=== PATIENT | female | born 1990 | race Two or more races ===

== ENCOUNTER 2017-02-13 11:58 | Emergency (ER) | payer SELFPAY ==
[~2017-02-13] VITALS: Ht 162.6 cm; Wt 59.0 kg
[2017-02-13 13:49] LABS: POTASSIUM ISTAT 3.2 mmol/L (3.5-5.0)
--- NOTE | 2017-02-13 13:59 | PHYS DOC ---
Past Medical History Past Medical History: No Pertinent History Past Surgical History: No Surgical History Alcohol Use: None Drug Use: None Adult General Chief Complaint Chief Complaint: VAGINAL BLEEDING HPI HPI 26-year-old female is not think she's been previously now presents to the emergency department unsure if she is and vaginal bleeding. She said some crampy pelvic pain. That's improved now and she is comfortable at rest. No other discharge. Normal bowel and bladder habits. No fevers chills sweats or shaking chills. No prior care or workup for this suspected possible . Denies lightheadedness or near syncope. Review of Systems Review of Systems Constitutional: Denies fever or chills [] Eyes: Denies change in visual acuity, redness, or eye pain [] HENT: Denies nasal congestion or sore throat [] Respiratory: Denies cough or shortness of breath [] Cardiovascular: No additional information not addressed in HPI [] GI: Denies abdominal pain, nausea, vomiting, bloody stools or diarrhea [] : Denies dysuria or hematuria [] Musculoskeletal: Denies back pain or joint pain [] Integument: Denies rash or skin lesions [] Neurologic: Denies headache, focal weakness or sensory changes [] Endocrine: Denies polyuria or polydipsia [] Current Medications Current Medications Current Medications Medications (Trade) Dose Ordered Sig/Ozzy Start Time Stop Time Status Last Admin Dose Admin Ondansetron HCl (Zofran Odt) 4 mg 1X ONCE 02/13/17 15:45 02/13/17 15:46 DC 02/13/17 15:44 4 MG Allergies Allergies Allergies Coded Allergies Type Severity Reaction Last Updated Verified No Known Drug Allergies 02/13/17 No Physical Exam Physical Exam Alert well-appearing female no acute distress no subconjunctival pallor. Vital signs unremarkable. Nontender abdomen and pelvis Constitutional: Well developed, well nourished, no acute distress, non-toxic appearance. [] HENT: Normocephalic, atraumatic, bilateral external ears normal, oropharynx moist, no oral exudates, nose normal. [] Eyes EOMI, conjunctiva normal, no discharge. [] Neck: Normal range of motion, no tenderness, supple, no stridor. [] Cardiovascular:Heart rate regular rhythm, no murmur [] Lungs & Thorax: Bilateral breath sounds clear to auscultation [] Abdomen: Bowel sounds normal, soft, no tenderness, no masses, no pulsatile masses. [] Skin: Warm, dry, no erythema, no rash. [] Back: No tenderness, no CVA tenderness. [] Extremities: No tenderness, no cyanosis, no clubbing, ROM intact, no edema. [] Neurologic: Alert and oriented X 3, normal motor function, normal sensory function, no focal deficits noted. [] Psychologic: Affect normal, judgement normal, mood normal. [] Nurse present for pelvic exam. Patient with normal external genitalia. Small amount of blood and tissue in the vaginal vault. Os closed. No cervical motion tenderness discharge or odor. No adnexal mass or tenderness. No fundal tenderness. Current Patient Data Vital Signs Vital Signs Date Time Temp Pulse Resp B/P (MAP) Pulse Ox O2 Delivery O2 Flow Rate FiO2 02/13/17 15:19 75 21 120/67 (84) 100 Room Air 02/13/17 12:10 98.7 98.7 Lab Values Laboratory Tests Test 02/13/17 12:21 02/13/17 13:24 02/13/17 14:05 POC Urine HCG, Qualitative Hcg positive (Negative) POC Hemoglobin 14.6 g/dL (12-15) POC Hematocrit 43 % (36-40) H POC Sodium 143 mmol/L (135-145) POC Potassium 3.2 mmol/L (3.5-5.0) L POC Chloride 107 mmol/L (98-110) POC Total CO2 22 mmol/L (23-32) L Anion Gap 18 mmol/L (6-14) H POC Blood Urea Nitrogen 6 mg/dL (8-26) L POC Creatinine 0.6 mg/dL (0.5-1.4) Glucose Level 85 mg/dL (70-99) POC Ionized Calcium (Cindy) 1.16 mmol/L (1.13-1.32) Maternal Serum HCG Beta Subunit 117 mIU/mL (0-5) H Laboratory Tests 02/13/17 13:24 EKG EKG [] Radiology/Procedures Radiology/Procedures [] Course & Med Decision Making Course & Med Decision Making Pertinent Labs and Imaging studies reviewed. (See chart for details) Positive urine test in a patient in early with no care. Small amount of blood and tissue in the vaginal vault suggestive of threatened miscarriage. workup pending including Rh status, quantitative hCG, pelvic ultrasound. Hemoglobin stable and unremarkable. Patient hemodynamically stable and well-appearing Ultrasound with no visible adnexal or intrauterine process. Patient has been aware we are not Able to rule out early ectopic radiographically and that close follow-up will be critical for repeat quantitative hCG to rule out evolving early ectopic versus viable intrauterine versus more likely miscarriage.. Quantitative hCG 117 consistent with 1-3 weeks of gestation. Rh+ patient with a normal hemoglobin of 14.6. Patient continues to be well- appearing and hemodynamically stable. Further workup or treatment indicated. Copy of ultrasound results given to patient for follow-up with [facility] doctor for repeat quantitative hCG in 2 days. Patient and significant other agree with outpatient follow-up and strict return precautions given. [] Dragon Disclaimer Dragon Disclaimer This electronic medical record was generated, in whole or in part, using a voice recognition dictation system. Departure Departure Impression: Primary Impression: Additional Impression: Threatened miscarriage in early Disposition: 01 HOME, SELF-CARE Condition: STABLE Referrals: NO PCP (PCP) Patient Instructions: Threatened Miscarriage Additional Instructions: Pertinency test was positive but you have vaginal bleeding in early . No intrauterine was visible on your ultrasound. Her quantitative hCG was 117 today. Your blood type is Rh+. This is important to remember as it will be relevant for any future pregnancies. As we are unable to see a on her ultrasound is impossible to say that you have an evolving either in your uterus or potentially a tubal . It is critically important he follow-up with an [facility] doctor or your primary care doctor in 2 days for reevaluation and for a repeat quantitative hCG level to compare to today's value in order to extrapolate whether or not you have an evolving or developing miscarriage. Return immediately for new severe or worsening symptoms specifically for severe bleeding or uncontrolled pain. If you have discomfort take ibuprofen and Tylenol as needed. Scripts Ondansetron (ZOFRAN ODT) 4 Mg Tab.rapdis 1 TAB SL Q4HRS Y for VOMITING, #15 TAB Prov: LALYA WATTERS MD 02/13/17 Problem Qualifiers LAYLA WATTERS MD Feb 13, 2017 13:58
--- NOTE | 2017-02-13 14:58 | RAD ---
Examination: Obstetric ultrasound less than 14 weeks History: History of vaginal bleeding, pain Comparison: None available Findings: The uterus measures 9.9 x 5.8x 4.9 cm The endometrium appears thickened measuring 1.9 cm in diameter. Intrauterine gestational sac is not identified. The right ovary measures 2.9 x 1.8x1.8 cm. The left ovary measures 2.5 x 2.1 x 1.4 cm. Blood flow identified in the right and left ovaries. Small amount of free fluid identified in the cul-de-sac. Impression: A intrauterine gestational sac is not identified. Differential includes very early , failed first trimester or ectopic . Ectopic gestation sac is not identified. Close interval follow-up examination and follow-up serial quantitative beta-hCG levels is recommended.
[2017-02-13 15:19] VITALS: BP 120/67
[2017-02-13] MEDS ORDERED: ONDANSETRON ODT 4 MG TAB.RAPDIS. ONE (15:38)
[2017-02-13] MEDS ORDERED: ONDANSETRON ODT 4 MG TAB.RAPDIS. PO ONE (15:45)
[2017-02-13] MEDS ORDERED: ONDA4TAB10 SL (15:50)
== END 2017-02-13 15:59 | disposition home or self-care (01) ==
LOC: ER 11:58
DX: O20.0 Threatened abortion (principal); Z3A.01 Less than 8 weeks gestation of pregnancy
CPT/HCPCS: 36415; 76801; 76817; 80047; 81025; 84702; 86901; 99285; Q0162